=== PATIENT | female | born 1980 | race Caucasian/White ===

== ENCOUNTER 2017-03-19 23:59 | Inpatient (IN) | payer OTHER, SELFPAY ==
[~2017-03-19 23:59] MED LIST: BENTYL20 M1 PO; FERROUS GLUCON325 M3 PO; IBUPROFEN800 M1 PO; IMURAN50 M1 PO; MIRALAX17 G2 PO; MOTRIN800 MG PO; OXYCODONE/APAP PO; PENTASA500 MG/CAP PO; PERCOCET 5-3251 EACH PO; PREDNISONE10 M1 PO; PREDNISONE5 M1 PO; PRENATAL VITAM1 EAC5 PO; PRENATAL VITAMI PO; ZOFRAN4 M2 PO
[2017-03-20] MEDS ORDERED: CIMZIA400 MG SC ×2 (00:10→02:24)
[2017-03-20 00:57] LABS: BASO % 0.1 % (0-2); EOS % 0.3 % (0-7); HCT-HEMATOCRIT 28.3 % (34.0-49.0); HGB-HEMOGLOBIN 8.8 gm/dl (12.0-15.5); IMMATURE GRANULOCYTES ABSOLUTE 0.04 tho/cmm (0-0.03); IMMATURE GRANULOCYTES PERCENT 0.3 % (0-0.3); LYMPH % 24.1 % (20-45); LYMPH ABSOLUTE COUNT 3.5 tho/cmm (0.8-4.5); MCH (MEAN CORPUSCULAR HGB) 24.9 pg (28.0-32.0); MCHC MEAN CORPUSCULAR HGB CONC 31.1 % (32.0-36.0); MCV (MEAN CELL VOLUME) 80.2 fl (82.0-96.0); MEAN PLATELET VOLUME 8.8 cmc (9.4-12.4); MONO % 8.6 % (0-12); MONOCYTE ABSOLUTE COUNT 1.2 tho/cmm (0.0-1.2); NEUTROPHIL ABSOLUTE COUNT 9.6 tho/cmm (1.6-8.0); NEUTROPHIL-AUTOMATED 9.6 tho/cmm (1.6-8.0); NEUTROPHILS % 66.6 % (40-80); PLATELET COUNT 358 tho/cmm (150-450); RED BLOOD COUNT 3.53 mil/cmm (4.00-5.20); WHITE BLOOD COUNT 14.4 tho/cmm (4.0-10.0)
[2017-03-20 01:01] LABS: URINE BILIRUBIN NEGATIVE (NEG); URINE BLOOD NEGATIVE (NEG); URINE GLUCOSE (UA) NEGATIVE (NEG); URINE KETONE SMALL (NEG); URINE LEUKOCYTE ESTERASE POSITIVE (NEG); URINE NITRITE NEGATIVE (NEG); URINE PROTEIN SMALL (NEG); URINE SPECIFIC GRAVITY 1.005 (1.003-1.030)
[2017-03-20 01:04] LABS: URINE APPEARANCE HAZY; URINE COLOR YELLOW
[2017-03-20 01:07] LABS: URINE BACTERIA 1+; URINE EPITHELIAL CELLS 0-2 /[HPF] (0-10); URINE RBC 0 /[HPF] (0-5)
[2017-03-20 01:21] LABS: ALBUMIN 3.2 g/dl (3.5-5.0); ALKALINE PHOSPHATASE 62 U/L (33-138); ALT/SGPT 15 U/L (12-78); ANION GAP 13 mmol/L (0-20); AST/SGOT 8 U/L (10-40); BILIRUBIN,TOTAL 0.2 mg/dl (0-1.5); BLOOD UREA NITROGEN 9 mg/dl (6-24); CALCIUM 8.8 mg/dl (8.5-10.5); CARBON DIOXIDE-VENOUS 27 mmol/L (22-32); CHLORIDE 105 mmol/l (96-110); CREATININE 0.82 mg/dl (0.50-1.10); GLUCOSE 95 mg/dL (70-110); LIPASE 110 U/L (73-393); POTASSIUM 3.4 mmol/L (3.7-5.1); SODIUM 142 mmol/L (135-145); eGFR VALUE FOR BLACK >90 mL/Min
[2017-03-20] MEDS ORDERED: IRON325 M2 PO (02:24)
[2017-03-20] MEDS ORDERED: PREDNISONE5 M1 PO (02:24)
[2017-03-20] MEDS ORDERED: VITAMIN C500 M3 PO (02:25)
[2017-03-20 04:55] LABS: MAGNESIUM 2.3 mg/dl (1.8-2.6)
[2017-03-20 04:58] LABS: C-REACTIVE PROTEIN <0.3 mg/dl (0-0.9)
[2017-03-20 04:59] LABS: PROCALCITONIN <0.05 ng/ml (0.05-0.09)
[2017-03-20 06:02] LABS: ANION GAP 15 mmol/L (0-20); BLOOD UREA NITROGEN 7 mg/dl (6-24); CALCIUM 8.4 mg/dl (8.5-10.5); CARBON DIOXIDE-VENOUS 24 mmol/L (22-32); CHLORIDE 107 mmol/l (96-110); CREATININE 0.79 mg/dl (0.50-1.10); GLUCOSE 87 mg/dL (70-110); POTASSIUM 4.1 mmol/L (3.7-5.1); SODIUM 142 mmol/L (135-145); eGFR VALUE FOR BLACK >90 mL/Min
[2017-03-20 06:06] LABS: BASO % 0.2 % (0-2); EOS % 0.5 % (0-7); EOSINOPHIL ABSOLUTE COUNT 0.1 tho/cmm (0.0-0.7); HCT-HEMATOCRIT 28.5 % (34.0-49.0); HGB-HEMOGLOBIN 8.7 gm/dl (12.0-15.5); IMMATURE GRANULOCYTES ABSOLUTE 0.03 tho/cmm (0-0.03); IMMATURE GRANULOCYTES PERCENT 0.2 % (0-0.3); LYMPH % 26.4 % (20-45); LYMPH ABSOLUTE COUNT 3.2 tho/cmm (0.8-4.5); MCH (MEAN CORPUSCULAR HGB) 24.6 pg (28.0-32.0); MCHC MEAN CORPUSCULAR HGB CONC 30.5 % (32.0-36.0); MCV (MEAN CELL VOLUME) 80.7 fl (82.0-96.0); MONO % 8.2 % (0-12); NEUTROPHIL ABSOLUTE COUNT 7.8 tho/cmm (1.6-8.0); NEUTROPHIL-AUTOMATED 7.8 tho/cmm (1.6-8.0); NEUTROPHILS % 64.5 % (40-80); PLATELET COUNT 361 tho/cmm (150-450); RED BLOOD COUNT 3.53 mil/cmm (4.00-5.20); RED CELL DISTRIBUTION WIDTH 14.2 % (12.4-16.4); WHITE BLOOD COUNT 12.2 tho/cmm (4.0-10.0)
[2017-03-20] MEDS ORDERED: IMURAN50 M1 PO (10:53)
[2017-03-20] MEDS ORDERED: ENTOCORT EC3 M1 PO (10:54)
--- NOTE | 2017-03-20 21:13 | NUR ---
VIRTUAL CARE NOTE: REVIWED PLAN OF CARE WITH PT. SHE FEELS SHE IS READY TO INCREASE HER DIET. INFORMED HER THE ORDER ONLY STATES CLEAR LIQUIDS BUT HOPEFULLY CAN INCREASE IN AM AND LET HER GO POSSIBLE IF SHE TOLERATES LUNCH. PT V/U. DENIES NEED FOR MEDICATION INFORMATION. SAYS POSITIVE GAS TODAY, HAS BEEN UP WALKING. FEELING NEED TO HAVE BM, BUT NONE YET. DENIES ANY OTHER NEEDS AT THIS TIME. ENCOURAGED FALL PRECAUTIONS AND TO NOTIFY STAFF WTH ANY NEEDS. PT V/U. WILL CONTINUE WITH CHART REVIEW.
[2017-03-21] MEDS ORDERED: PREDNISONE10 M1 PO (17:53)
[2017-03-21] MEDS ORDERED: IMURAN50 M1 PO (18:03)
== END 2017-03-21 18:25 | DRG 386 ==
LOC: EDMED 23:59 → EMR2 03-20 04:26 → 5WD 03-20 05:45
PROVIDERS: Physician Assistant; ADMIT Internal Medicine
DX: K50.912 Crohn's disease, unspecified, with intestinal obstruction (principal); D50.9 Iron deficiency anemia, unspecified; F41.9 Anxiety disorder, unspecified; J45.909 Unspecified asthma, uncomplicated; K08.409 Partial loss of teeth, unspecified cause, unspecified class
CPT/HCPCS: J1335; J1956; J2270; J2405; J2920; J2930; Q9967